=== PATIENT | male | born 1990 | race Caucasian/White ===

== ENCOUNTER 2025-02-25 06:33 | Emergency (ER) | payer OTHER, SELFPAY ==
[2025-02-25 06:34] VITALS: BP 169/111; PULSE 96; RESP 18; TEMP 36.4; O2SAT 99; BMI 34.6
--- NOTE | 2025-02-25 07:09 | ED.VIS.CHEST ---
HPI History of Present Illness Chief Complaint: Chest Pain Informant: patient Onset/Context/Timing Onset: Today and Hours (1.5) Activity at onset: sudden Timing: Continuous Quality: Positive for Tightness Location: Substernal, Right Parasternal, Left Parasternal, Right Chest and Left Chest Worsened By: Breathing and Coughing Relieved By: Nothing Associated Symptoms: Positive for Dyspnea, Cough, Lightheadedness, Acid Reflux and Palpitations; Negative for Nausea, Vomiting, Diaphoresis or Fever Narrative Narrative: Patient presents with chest pain that began approximately 1-1/2 hours prior to arrival. Patient states intermittent suddenly. Patient states he was driving to work when it began. Patient states it has been constant. Patient describes it as a tight band around his lower chest. Patient states it is worse with deep breathing and with coughing. Patient denies any sputum production. Patient denies any fevers or chills. Patient states he cannot take a deep breath due to the pain. Patient admits to some lightheadedness. Patient also admits to some reflux symptoms. CVD Risk Factors: Negative for Hypertension, Diabetes, Hypercholesterolemia, Family History 1' </=55 or Smoking PE Risk Factors: Negative for Recent Travel/Surgery, Recent Immobilization, Prior DVT or PE, Cancer or OCP + Smoking + >/=35 PFSH [facility] Medical History (Updated 02/25/25 @ 09:[address] Oumar Summers, ) Gastroesophageal reflux disease Home Medications ?Medication ?Instructions ?Recorded ?Last Taken ?Type NK 02/25/25 Unknown History Allergy/AdvReac Type Severity Reaction Status Date / Time No Known Allergies Allergy Verified 02/25/25 06:34 Surgical History (Updated 02/25/25 @ 07:[address] Oumar Summers, ) Hx of wisdom tooth extraction Hx of tonsillectomy Social History Smoking Status: Current every day smoker tobacco type: smokeless tobacco ROS ROS ED Constitutional Constitutional ED: Denies chills or fever(s) Eyes Eyes: Denies blurry vision or change in vision ENT ENT ED: Denies rhinorrhea or sore throat Cardiovascular Cardiovascular: Reports as per HPI and chest pain; Denies palpitations Respiratory/Chest Respiratory/Chest: Reports cough and dyspnea Gastrointestinal Gastrointestinal: Denies nausea or vomiting Genitourinary Genitourinary ED: Denies dysuria or hematuria Musculoskeletal Musculoskeletal: Denies back pain or neck pain Integumentary Denies abscess or rash Neurologic Neurologic: Reports weakness; Denies headache(s) Allergic/Immunologic Allergic/Immunologic ED: Denies mouth swelling or urticaria EXAM Physical Exam Const Vital Signs: 02/25/25 06:34 02/25/25 06:34 02/25/25 07:30 Temperature 97.6 F L Temperature Source Oral Pulse Rate 96 Respiratory Rate 18 Respiratory Effort Normal Non-Labored Blood Pressure 169/111 H Blood Pressure Mean 130 Pulse Ox 99 Oxygen Delivery Method Room Air Room Air 02/25/25 07:38 02/25/25 08:00 02/25/25 09:26 Temperature Temperature Source Pulse Rate 87 77 Respiratory Rate 16 24 H 30 H Respiratory Effort Blood Pressure 146/92 H 136/88 H Blood Pressure Mean 110 104 Pulse Ox 99 97 96 Oxygen Delivery Method Positive well nourished and well developed Constitutional Narrative: BMI is 34.6. General Appearance ED: well developed and NAD HEENT Reports moist mucous membranes normocephalic and atraumatic Neck supple and no JVD Chest Wall palpation of chest normal Resp normal respiratory effort and clear to auscultation bilaterally Cardio regular rate and regular rhythm GI soft to palpation, non-tender and non-distended Extremity normal to inspection Neuro oriented x3, CN's II-XII intact bilaterally and no sensory deficits noted Sensorium / Orientation: awake and alert Motor Exam: strength 5/5 throughout Psych mental status grossly normal Heart Score History: Slightly/Non-Suspicious ECG: Normal Age: </= 45 years Risk Factors: No Risk Factors Troponin: </= Normal Limit Score: 0 MDM MDM MDM Narrative Medical decision making narrative: Differential diagnosis includes but is not limited to cardiac dysrhythmia, cardiac ischemia, pneumonia, bronchitis, gastroesophageal reflux disease, hypertensive urgency, electrolyte abnormality, musculoskeletal pain, and anxiety. EKG will be obtained to assess for cardiac dysrhythmia and cardiac ischemia. Chest x-ray will be obtained to assess for pneumonia or bronchitis. CBC will be obtained to assess for leukocytosis and anemia. Basic metabolic profile will be obtained to assess for electrolyte abnormality and renal function. High-sensitivity troponin will be obtained to assess for cardiac ischemia. 2-hour repeat high-sensitivity troponin will be obtained to assess for ongoing cardiac ischemia. History & Record Review Additional record(s) reviewed:: No prior records Lab Data Attestation: I reviewed the patient's lab results. Lab results narrative: CBC was reviewed and was within normal limits. Basic metabolic profile was reviewed and was within normal limits. Initial high-sensitivity troponin was reviewed and was less than 6. 2-hour repeat high-sensitivity troponin was reviewed and was less than 6. Labs: Laboratory Results - last 24 hr 02/25/25 02/25/25 06:47 08:44 WBC 4.7 RBC 5.74 Hgb 17.4 H Hct 49.7 MCV 86.6 MCH 30.3 MCHC 35.0 RDW Std Deviation 41.0 RDW Coeff of Raiza 13.2 Plt Count 180 MPV 8.9 Immature Gran % (Auto) 0.400 Neut % (Auto) 54.6 Lymph % (Auto) 32.2 [place] % (Auto) 9.4 Eos % (Auto) 2.8 Baso % (Auto) 0.6 Absolute Neuts (auto) 2.6 Absolute Lymphs (auto) 1.51 Nucleated RBC % 0 Sodium 138 Potassium 4.2 Chloride 101 Carbon Dioxide 21.9 Anion Gap 15 BUN 11 Creatinine 0.82 Estim Creat Clear Calc 152.57 Est GFR (MDRD) Non-Af 118 BUN/Creatinine Ratio 12.8 Glucose 87 Calcium 9.9 Troponin T High Sens < 6 Troponin T Hi Sens 2 Hr < 6 Radiography Chest X-Ray - ED: 2 View, Read by ED Physician, Read by Radiologist and No Acute Disease Diagnostic Testing: Clinical Impression(s) from Imaging Studies Chest X-Ray 02/25/25 07:35 IMPRESSION: No acute cardiopulmonary process Reading Location: [facility] PA and lateral chest x-ray was obtained. There are 2 views. On my independent interpretation, lung huang are clear. There is normal cardiac silhouette. Bony thorax is normal. There is no acute process noted. Radiologist also interpreted the x-ray and agrees. EKG Initial EKG: Attestation: I personally reviewed and interpreted this EKG as follows: Interpretation: Sinus Rhythm (86) and No Acute Injury Pattern Comments: EKG was obtained. On my independent interpretation, it showed a normal sinus rhythm with a rate of 86. WI interval, QRS interval, and QTc intervals were all normal. [place] was normal. There are no acute ST or T wave changes. Prior EKG tracings: not available for review Prior: No Prior Treatment and Re-Evaluation :: Patient was given aspirin. Patient was advised of his findings. Patient has a HEART score of 0. Patient was advised that this is low risk for acute cardiac event. Patient was instructed to follow-up with his primary care physician in 5 to 7 days. Patient was instructed to return if worse in any way. Patient understood and was agreeable with the plan. All questions were answered. Discharge Plan Triage Chief Complaint: Chest Pain ED Provider: Oumar Summers Dx/Rx/DC Orders Clinical Impression: Chest pain, Elevated blood pressure reading Instructions: ED Chest Pain, Uncertain Cause Prescriptions: No Action NK Primary Care Provider: Abby Taylor Referrals: Abby Taylor MD [Primary Care Provider] - 5-7 Days Print Language: Trin[place] Disposition Disposition: Home, Self Care
--- NOTE | 2025-02-25 07:25 | EKG12_ITS ---
Test Reason : CP Blood Pressure : */* mmHG Vent. Rate : 86 BPM Atrial Rate : 86 BPM P-R Int : 170 ms QRS Dur : 86 ms QT Int : 346 ms P-R-T Axes : 47 8 39 degrees QTcB Int : 414 ms Normal sinus rhythm Normal ECG Confirmed by REYNALDO RODRIGUEZ, ARYNA ([id number]), news editor ROYCE ESTRADA ([id number]) on 02/28/2025 7:30:44 AM Referred By: SH[facility]N Confirmed By: ARYAN JACOBS MD
[2025-02-25 07:35] LABS: Hematocrit 49.7 % (40-54); Hemoglobin 17.4 g/dL (13.0-16.5); Immature Granulocytes Count 0.020 X10^3/uL (0.0-0.0); Mean Corp Hgb Conc 35.0 g/dL (32-36); Mean Corpuscular Volume 86.6 fL (80-94); Mean Platelet Vol. 8.9 fl (6.2-12.0); NRBC Flagged by Analyzer 0 % (0-5); Platelet Count 180 K/mm3 (150-450); RBC Distribution Width CV 13.2 % (11.6-14.6); RBC Distribution Width SD 41.0 fl (35.1-43.9); Red Blood Count 5.74 M/mm3 (4.6-6.2); White Blood Count 4.7 K/mm3 (4.4-11.0)
--- NOTE | 2025-02-25 07:35 | RAD_ITS ---
PROCEDURE: CHEST PA AND LATERAL 02/25/2025 REASON FOR EXAM: CHEST PAIN TECHNIQUE: CHEST PA AND LATERAL COMPARISON: None FINDINGS: Hardware: EKG leads Heart: Normal Mediastinum: Normal Lungs: Clear Bones: The bones are unremarkable. RAD/Chest PA and Lateral IMPRESSION: No acute cardiopulmonary process Reading Location: [id number]
[2025-02-25 07:38] VITALS: PULSE 87; RESP 16; O2SAT 99
[2025-02-25 08:00] VITALS: BP 146/92; PULSE 77; RESP 24; O2SAT 97
[2025-02-25 08:55] LABS: Troponin T High Sensitivity < 6 ng/L (<=22)
[2025-02-25 08:56] LABS: Anion Gap 15 (5-15); BUN 11 mg/dL (4-19); BUN/Creat Ratio 12.8 RATIO (10-20); Calcium,Total 9.9 mg/dL (7.6-11.0); Carbon Dioxide 21.9 mmol/L (21.0-32.0); Chloride 101 mmol/L (98-108); Estimated Creatinine Clearance 152.57 ml/min (50-250); Glucose 87 mg/dL (70-99); Potassium 4.2 mmol/L (3.3-5.1)
[2025-02-25 09:26] VITALS: BP 136/88; RESP 30; O2SAT 96
[2025-02-25 09:37] LABS: Troponin T High Sens 2 HR < 6 ng/L (<=22)
[2025-02-25 10:13] VITALS: BP 137/93; PULSE 74; RESP 15; TEMP 36.6; O2SAT 99
== END 2025-02-25 10:13 | disposition home or self-care (01) ==
PROVIDERS: Emergency Provider Emergency Medicine; PCP Internal Medicine; Visit Provider Emergency Medicine
DX: R07.9 Chest pain, unspecified (principal); R00.2 Palpitations; R03.0 Elevated blood-pressure reading, without diagnosis of hypertension; R06.00 Dyspnea, unspecified; R42 Dizziness and giddiness; K21.9 Gastro-esophageal reflux disease without esophagitis; F17.220 Nicotine dependence, chewing tobacco, uncomplicated
CPT/HCPCS: 71046; 80048; 84484; 85025; 93005; 99284; A4216